=== PATIENT | male | born 1950 | race Caucasian/White ===

== ENCOUNTER 2017-02-05 18:59 | Emergency (ER) | payer OTHER ==
--- NOTE | ~2017-02-05 | CT52 ---
[facility] A Service [facility] RADIOLOGY TEXT RESULTS PATIENT: MARIA DEL CARMEN TORRES LOCATION: SED : 48 UNIT #: [id number] AGE: [address]: MARCIA FIGUEREDO SEX: M ORDER DR: [id number] [place] [id number] E MR#: [id number] #: [id number] NAME: MARIA DEL CARMEN TORRES. : 1950 SEX: M STUDY DATE/TIME: 02/05/2017 17:56 UNIT: SED ROOM: STUDY DESCRIPTION: CT Cervical Spine Wo Cont Attending Physician: Marcia Figueredo Aprn Ordering Physician: Lito Mehta M.D. Primary Care Physician: Viktor Cloud M.D. MEDICAL IMAGING REPORT This report is preliminary unless electronic signature is present. EXAM Cervical spine CT. HISTORY Patient fell today. Posterior neck pain. TECHNIQUE Thin section imaging was obtained from the skull base to the upper thoracic spine and evaluated at bone and soft tissue windows with multiplanar reformats. This CT exam was performed with one or more of the following radiation dose reduction techniques: automatic exposure control, adjustment of mA and/or kV according to patient size, and iterative reconstruction. FINDINGS Cervical straightening is noted. There is a degenerative anterolisthesis of C3 on C4. Alignment is satisfactory, otherwise. There is disc space narrowing with anterior and posterior osteophytes seen throughout the cervical spine. This causes moderate canal stenosis at C3-4, C4-5 and C5-6. In addition to the disc disease, posterior facet degenerative changes are seen. The most prominent facet arthropathy is on the left at C3-4. No fractures are noted. No destructive bone lesions are seen. As a normal variant, there is incorporation of C1 into the occiput. IMPRESSION 1. 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 2. 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 3. No fractures are seen. [facility] A Service [facility] RADIOLOGY TEXT RESULTS PATIENT: MARIA DEL CARMEN TORRES LOCATION: [facility] [place] : 48 UNIT #: [id number] AGE: [address]: MARCIA FIGUEREDO SEX: M ORDER DR: Dictated by... Leonardo Aguilar M.D. THIS IS AN ELECTRONICALLY VERIFIED REPORT Leonardo Aguilar M.D. at 02/05/2017 10:22 PM CHRISTAL/estelle TD: 02/05/2017 19:03 JOB #: [id number] MEDICAL IMAGING REPORT Page 1 of 1
--- NOTE | ~2017-02-05 | CT71 ---
[facility] A Service of [facility] & [facility] RADIOLOGY TEXT RESULTS PATIENT: MARIA DEL CARMEN TORRES LOCATION: SED : 48 UNIT #: [id number] AGE: [address]: MARCIA FIGUEREDO SEX: M ORDER DR: [id number] [place] [id number] P MR#: [id number] Acc #: [id number] NAME: MARIA DEL CARMEN TORRES. : 1950 SEX: M STUDY DATE/TIME: 02/05/2017 17:49 UNIT: SED ROOM: STUDY DESCRIPTION: CT Head Wo Contrast Attending Physician: Marcia Figueredo Aprn Ordering Physician: Lito Mehta M.D. Primary Care Physician: Viktor Cloud M.D. MEDICAL IMAGING REPORT This report is preliminary unless electronic signature is present. EXAM CT head 02/05/2017 HISTORY Pain. Fell, hit head today at 14:30 hours. Hit left head, landed right on chest, rib pain from fall, right side. TECHNIQUE CT head performed skull base through vertex without intravenous contrast. This CT exam was performed with one or more of the following radiation dose reduction techniques: automatic exposure control, adjustment of mA and/or kV according to patient size, and iterative reconstruction. COMPARISON No prior studies for comparison FINDINGS Brainstem unremarkable. Cerebellum and cerebral hemispheres show overall preservation of everett matter - white matter differentiation. No intracranial hemorrhage. There is no indication of acute cortical ischemia. Periventricular and deep white matter tract probable sequelae of chronic microvascular ischemia bilaterally. Areas of subcortical chronic appearing small vessel ischemic change in the bilateral frontal lobes toward the convexities. Midline structures nondisplaced. No acute-appearing basal ganglia abnormality. The ventricles, cisterns and sulci show mild generalized enlargement consistent with mild generalized atrophy. There is no intra or extraaxial mass effect or abnormal intracranial fluid collection. Extensive cavernous carotid distal vertebral arterial calcifications. The visualized intraorbital soft tissues are unremarkable. The visualized paranasal sinuses and mastoid air cells are clear. No fracture. Small left supraorbital forehead hematoma measuring about 2.6 cm in diameter by about 4-5 mm in thickness. No soft tissue defect, subcutaneous air or radiodense foreign body. STS. [facility] A Service of [facility] & [facility] RADIOLOGY TEXT RESULTS PATIENT: MARIA DEL CARMEN TORRES LOCATION: [facility] [place] : 48 UNIT #: [id number] AGE: [address]: MARCIA FIGUEREDO SEX: M ORDER DR: IMPRESSION 1. No acute abnormality is seen in the brain. If patient has ongoing neurologic symptoms, consider follow up imaging. 2. Chronic-appearing findings include the following: Mild generalized atrophy, periventricular and deep white matter tract probable sequelae of chronic microvascular ischemia, areas of subcortical chronic-appearing white matter ischemic change in the bilateral frontal lobes more pronounced toward the vertices, vascular calcifications. 3. No fracture. 4. Small left supraorbital forehead contusion/hematoma measuring about 2.6 cm in diameter by about 45 mm in thickness. No soft tissue defect or subcutaneous radiodense foreign body. Dictated by... Yayo Moon M.D. THIS IS AN ELECTRONICALLY VERIFIED REPORT Yayo Moon M.D. at 02/10/2017 10:29 AM ROLY/darron TD: 02/05/2017 18:59 JOB #: [id number] MEDICAL IMAGING REPORT Page 1 of 1
--- NOTE | ~2017-02-05 | CR213 ---
[facility] A Service of [facility] & [facility] RADIOLOGY TEXT RESULTS PATIENT: MARIA DEL CARMEN TORRES LOCATION: SED : 48 UNIT #: [id number] AGE: [address]: MARCIA FIGUEREDO SEX: M ORDER DR: [id number] [place] [id number] E MR#: [id number] Acc #: [id number] NAME: MARIA DEL CARMEN TORRES. : 1950 SEX: M STUDY DATE/TIME: 02/05/2017 17:51 UNIT: SED ROOM: STUDY DESCRIPTION: CR Ribs Unilateral 2 View Rt Attending Physician: Marcia Figueredo Aprn Ordering Physician: Lito Mehta M.D. Primary Care Physician: Viktor Cloud M.D. MEDICAL IMAGING REPORT This report is preliminary unless electronic signature is present. EXAM Right ribs. HISTORY Rib pain after falling this afternoon. TECHNIQUE 5 views of the ribs were obtained. FINDINGS Both lungs are clear with no pneumothorax. No displaced rib fractures or destructive bone lesions are seen. No pleural thickening is noted. IMPRESSION Negative rib series. Dictated by... Leonardo Aguilar M.D. THIS IS AN ELECTRONICALLY VERIFIED REPORT Leonardo Aguilar M.D. at 02/05/2017 10:22 PM RLF/pcl TD: 02/05/2017 19:31 JOB #: [id number] MEDICAL IMAGING REPORT Page 1 of 1
[~2017-02-05 18:59] MED LIST: ASPIRIN81 M1 PO; BAYER ASPIRIN325 M1 PO; FINASTERIDE5 M1 PO; FLOMAX0.4 M1 DOB; FOLIC ACID1 MG PO; JALYN 0.5-0.41 EACH PO; LIPITOR PO; MOTRIN600 MG PO; MULTI-DAY1 TAB PO; PRINIVIL10 MG PO; TRICOR145 MG PO; VITAMIN B122500 MC1; VITAMIN D250000 UNIT PO; ZYLOPRIM PO
== END 2017-02-05 20:12 | disposition home or self-care (01) ==
LOC: SED 18:59
DX: S00.33XA Contusion of nose, initial encounter (principal); W22.8XXA Striking against or struck by other objects, initial encounter; Y92.009 Unspecified place in unspecified non-institutional (private) residence as the place of occurrence of the external cause
CPT/HCPCS: 70450; 71100; 72125; 99284